=== PATIENT | female | born 1985 | race American Indian/Alaskan Native ===

== ENCOUNTER 2019-04-05 12:50 | Emergency (ER) | payer BC ==
[2019-04-05 13:25] VITALS: BP 181/104
--- NOTE | 2019-04-05 13:28 | Emergency Department Report ---
ED Female HPI - General Chief complaint: Urogenital-Female Stated complaint: VAGINAL DISCHARGE Time Seen by Provider: 04/05/19 13:12 Source: patient Mode of arrival: Ambulatory Limitations: No Limitations - History of Present Illness Initial comments: 33-year-old female presents to ED with report of vaginal discharge 3 days. Patient reports itching; denies fever, dysuria or abdominal pain. MD Complaint: vaginal discharge -: days(s) (3) Severity: mild Consistency: constant Improves with: none Worsens with: none Associated Symptoms: denies: vaginal bleeding, abdominal pain, nausea/vomiting, fever/chills, dysuria - Related Data Sexually active: Yes Previous Rx's Medication Instructions Recorded Last Taken Type Fluconazole [Diflucan TAB] 150 mg PO ONCE #1 tablet 04/05/19 Unknown Rx Allergies Allergy/AdvReac Type Severity Reaction Status Date / Time No Known Allergies Allergy Unverified 04/05/19 12:52 ED Review of Systems ROS: Stated complaint: VAGINAL DISCHARGE Other details as noted in HPI Comment: All other systems reviewed and negative Constitutional: denies: chills, fever Gastrointestinal: denies: abdominal pain, nausea, vomiting Genitourinary: discharge. denies: dysuria, frequency ED Past Medical Hx - Past Medical History Previous Medical History?: No - Surgical History Additional Surgical History: C SECTION - Social History Smoking Status: Unknown if ever smoked - Medications Home Medications: Home Medications Medication Instructions Recorded Confirmed Last Taken Type Fluconazole [Diflucan TAB] 150 mg PO ONCE #1 tablet 04/05/19 Unknown Rx ED Physical Exam - General Limitations: No Limitations General appearance: alert, in no apparent distress - Head Head exam: Present: atraumatic, normocephalic - Eye Eye exam: Present: normal appearance - ENT ENT exam: Present: mucous membranes moist - Neck Neck exam: Present: normal inspection - Respiratory Respiratory exam: Present: normal lung sounds bilaterally. Absent: respiratory distress - Cardiovascular Cardiovascular Exam: Present: normal rhythm, tachycardia - GI/Abdominal GI/Abdominal exam: Present: soft. Absent: distended, tenderness - External exam: Present: normal external exam Speculum exam: Present: vaginal discharge, cervical discharge Bi-manual exam: Present: normal bi-manual exam. Absent: cervical motion tendernes - Extremities Exam Extremities exam: Present: normal inspection - Neurological Exam Neurological exam: Present: alert, oriented X3 - Psychiatric Psychiatric exam: Present: normal affect, normal mood - Skin Skin exam: Present: warm, dry, intact, normal color ED Course Vital Signs 04/05/19 12:58 Temperature 98.1 F Pulse Rate 110 H Respiratory 18 Rate Blood Pressure 181/104 O2 Sat by Pulse 98 Oximetry Critical care attestation.: If time is entered above; I have spent that time in minutes in the direct care of this critically ill patient, excluding procedure time. ED Disposition Clinical Impression: Alesha vaginitis Disposition: TO HOME OR SELFCARE Is pt being admited?: No Condition: Stable Instructions: Vaginitis (ED) Prescriptions: Fluconazole [Diflucan TAB] 150 mg PO ONCE #1 tablet [facility]: [facility] [Primary Care Provider] - 3-5 Days PRIMARY CAREMD [Referring] - 3-5 Days MEET DEVI MD [Staff Physician] - 3-5 Days Time of Disposition: 15:01
[2019-04-05 14:49] LABS: Bilirubin,Urine NEG (Negative); Blood,Urine NEG (Negative); Color,Urine Yellow (Yellow); Mucus,Urine FEW /HPF
[2019-04-05 14:58] LABS: HCG Qualitative,Urine Negative (Negative)
[2019-04-05] MEDS ORDERED: XYLOCAINE 1% MPF 5 mL INFILTRATI ONE (14:59)
[2019-04-05] MEDS ORDERED: ZITHROMAX PO ONE (14:59)
[2019-04-05] MEDS ORDERED: ROCEPHIN IM ONE (14:59)
== END 2019-04-05 16:11 | disposition home or self-care (01) ==
LOC: ED 12:50
DX: B37.3 Candidiasis of vulva and vagina (principal)
CPT/HCPCS: 81001; 81025; 87210; 87591; 96372; 99284; J0696

== ENCOUNTER 2020-09-16 02:58 | Emergency (ER) | payer SELFPAY ==
[2020-09-16 03:37] VITALS: BP 198/112
== END 2020-09-16 07:32 | disposition left against medical advice (07) ==
LOC: ED 02:58
DX: M54.2 Cervicalgia (principal); M54.5 Low back pain; Z53.21 Procedure and treatment not carried out due to patient leaving prior to being seen by health care provider; V49.49XA Driver injured in collision with other motor vehicles in traffic accident, initial encounter; Y93.89 Activity, other specified; Y92.488 Other paved roadways as the place of occurrence of the external cause; Y99.8 Other external cause status

== ENCOUNTER 2021-06-06 14:34 | Emergency (ER) | payer OTHER ==
[2021-06-06 18:04] VITALS: BP 176/111
--- NOTE | 2021-06-06 19:10 | Emergency Department Report ---
<PHIL JIMENEZ - Last Filed: 06/07/21 01:49> ED General Adult HPI - General Chief complaint: Urogenital-Female Stated complaint: increased thirst/urination Time Seen by Provider: 06/06/21 18:42 Source: patient Mode of arrival: Ambulatory Limitations: No Limitations - History of Present Illness Initial comments: 35-year-old female patient with history of BMI > 50 presents to the emergency department with complaints of increased thirst, increased urine output, and vaginal irritation for 1 week. Patient "thinks" she has a family history of diabetes. No new medications. Denies fever, chills, shortness of breath, chest pain, palpitations, syncope, vomiting, vaginal discharge, vaginal bleeding. Denies all other complaints at this time. - Related Data Previous Rx's Medication Instructions Recorded Last Taken Type Fluconazole (Nf) [Diflucan TAB] 150 mg PO ONCE #1 tablet 04/05/19 Unknown Rx Fluconazole [Diflucan TAB] 150 mg PO QDAY 1 Days tablet 06/07/21 Unknown Rx metFORMIN [Glucophage] 500 mg PO BID 14 Days tablet 06/07/21 Unknown Rx Allergies Allergy/AdvReac Type Severity Reaction Status Date / Time No Known Allergies Allergy Unverified 04/05/19 12:52 ED Review of Systems Other: GENERAL: Negative for fever, chills, weight change, anorexia, fatigue. ENT: Negative for ear pain, difficulty hearing, sore throat, nasal congestion, epistaxis. CARDIOVASCULAR: Negative for chest pain, palpitations, lower extremity swelling. PULMONARY: Negative for cough, dyspnea, wheezing, orthopnea, cyanosis. GASTROINTESTINAL: Negative for abdominal pain, nausea, vomiting, diarrhea, constipation. GENITOURINARY: Positive for vaginal itching. MUSCULOSKELETAL: Negative for joint pain, joint swelling, myalgias, back pain, neck pain. NEUROLOGICAL: Negative for headache, seizure, syncope, paresthesias, weakness. INTEGUMENTARY: Negative for erythema, rash, diaphoresis, laceration, ecchymosis. HEMATOLOGICAL: Negative for hemoptysis, hematemesis, hematochezia, hematuria. PSYCHIATRIC: Negative for hallucinations, suicidal ideation, homicidal ideation, anxiety, depression. ENDOCRINE: Positive for increased thirst/urination. ED Past Medical Hx - Past Medical History Previous Medical History?: No - Surgical History Past Surgical History?: Yes Additional Surgical History: C SECTION - Social History Smoking Status: Never Smoker Substance Use Type: None - Medications Home Medications: Home Medications Medication Instructions Recorded Confirmed Last Taken Type Fluconazole (Nf) [Diflucan TAB] 150 mg PO ONCE #1 tablet 04/05/19 Unknown Rx Fluconazole [Diflucan TAB] 150 mg PO QDAY 1 Days tablet 06/07/21 Unknown Rx metFORMIN [Glucophage] 500 mg PO BID 14 Days tablet 06/07/21 Unknown Rx ED Physical Exam - General Limitations: No Limitations - Other Other exam information: General: Awake and alert. No acute distress. BMI 51.6. Head: Atraumatic, normocephalic. Eyes: EOMI. Pupils are equal and round. Normal sclera and conjunctiva. ENT: Oral mucosa is moist. Normal pharyngeal exam. Neck: Supple. No lymphadenopathy. Hyperpigmentation noted to the posterolateral neck. Pulmonary: No respiratory distress. Clear to auscultation bilaterally. Cardiac: Regular rate and rhythm. Pulses are palpable and equal bilaterally. No lower extremity cyanosis or edema. Skin: Warm and dry. No rashes. Abdomen: Soft, non-tender, non-protuberant. No guarding, rigidity, or rebound. Bowel sounds are normal. No organomegaly or masses noted. Back: Normal alignment. No CVA tenderness. Extremities: Symmetrical. Full range of motion intact. Neurological: Alert and oriented, appropriately interactive, no focal deficits. Psych: Cooperative. Appropriate mood and affect. Speech is evenly metered. Thoughts are logically construed. ED Medical Decision Making - Lab Data Result diagrams: 06/06/21 19:21 06/06/21 19:21 - Medical Decision Making Differential diagnosis including but not limited to: diabetes mellitus, diabetes insipidus, thyroid disease, hypoglycemia, dehydration, electrolyte abnormality 20:24: Labs show hyperglycemia consistent with new onset diabetes. pH within normal limits. No ketonuria to suggest DKA. Patient will be given 1 L of IV fluids as well as 5 units of IV insulin and fingerstick blood glucose will be repeated prior to final disposition. 22:29: Patient is stable, awaiting IV fluids and insulin. 01:49: Care of patient transferred to Evan Arias PA-C pending repeat blood glucose after IV fluids and medication. Anticipate discharge home. ED Disposition Clinical Impression: Diabetes mellitus, new onset, Candiduria Disposition: 01 HOME / SELF CARE / HOMELESS Is pt being admited?: No Does the pt Need Aspirin: No Condition: Stable Instructions: Type 2 Diabetes Mellitus, Diagnosis, Adult, Diabetes Mellitus and Nutrition, Adult, Diabetes Mellitus Type 2 in Adults (ED) Additional Instructions: Take Metformin with food as directed. Take Diflucan as directed. Reduce your dietary salt/sugar/carbohydrate intake. Exercise daily. You must follow-up with your primary care provider this week. Call today to schedule an appointment. Return to the emergency department immediately for new or worsening symptoms. Specifically, return to the emergency department immediately for fever, vomit ing, difficulty breathing, mental status changes, or any other concerns. Prescriptions: Fluconazole [Diflucan TAB] 150 mg PO QDAY 1 Days tablet metFORMIN [Glucophage] 500 mg PO BID 14 Days tablet Referrals: MARY AGUERO MD [Staff Physician] - 3-5 Days [facility] [Outside] - 3-5 Days [facility] [Outside] - 3-5 Days [facility] [Outside] - 3-5 Days [facility] [Provider Group] - 3-5 Days <STEVE MELO - Last Filed: 06/07/21 16:47> ED Review of Systems ROS: Stated complaint: increased thirst/urination Other details as noted in HPI ED Course Vital Signs 06/06/21 06/07/21 16:56 03:33 Temperature 98.6 F Pulse Rate 96 H 87 Respiratory 20 17 Rate Blood Pressure 176/111 O2 Sat by Pulse 99 99 Oximetry ED Medical Decision Making - Lab Data Result diagrams: 06/06/21 19:21 06/06/21 19:21 Critical care attestation.: If time is entered above; I have spent that time in minutes in the direct care of this critically ill patient, excluding procedure time.
[2021-06-06 19:25] LABS: Bilirubin,Urine NEG (Negative); Blood,Urine NEG (Negative); Color,Urine Yellow (Yellow); Urobilinogen,Urine < 2.0 mg/dL (<2.0)
[2021-06-06 19:56] LABS: Basophils % (Auto) 0.6 % (0.0-1.8); Eosinophils # (Auto) 0.1 K/mm3 (0.0-0.4); Eosinophils % (Auto) 1.4 % (0.0-4.3); Hematocrit 41.6 % (30.3-42.9); Mean Corpuscular HGB Conc 34 % (30-34); Mean Corpuscular Volume 88 fl (79-97); Monocytes # (Auto) 0.5 K/mm3 (0.0-0.8); Platelet Count 292 K/mm3 (140-440); Red Blood Count 4.73 M/mm3 (3.65-5.03); Red Cell Distribution Width 14.6 % (13.2-15.2)
[2021-06-06 20:05] LABS: Alanine Aminotransferase 28 units/L (7-56); Albumin 4.3 g/dL (3.9-5); BUN/Creatinine Ratio 16; Blood Urea Nitrogen 14 mg/dL (7-17); Calcium 9.8 mg/dL (8.4-10.2); Hemolysis Index 11
[2021-06-06] MEDS ORDERED: SODIUM CHLORIDE 0.9% 1000 ML 1,000 ML IV ONE (20:24)
[2021-06-06] MEDS ORDERED: INSULIN REGULAR, HUMAN 100 UNITS/1 ML IV ONE (20:27)
== END 2021-06-07 03:33 | disposition home or self-care (01) ==
LOC: ED 14:34
DX: E11.8 Type 2 diabetes mellitus with unspecified complications (principal); B37.49 Other urogenital candidiasis
CPT/HCPCS: 36415; 80053; 81001; 82805; 82962; 83735; 84436; 84443; 84703; 85025; 96361; 96374; 99283; J7030; J1815